=== PATIENT | female | born 1950 | race Caucasian/White ===

== ENCOUNTER 2018-07-01 15:23 | Outpatient (CLI) | payer MEDICARE | END 2018-07-01 15:24 | disposition home or self-care (01) | LOC: BICMAMMO 15:23 | PROVIDERS: ATTEND Family Medicine | DX: Z12.31 Encounter for screening mammogram for malignant neoplasm of breast (principal); R92.1 Mammographic calcification found on diagnostic imaging of breast | CPT/HCPCS: 77063; 77067 ==

== ENCOUNTER 2019-08-31 09:02 | Outpatient (CLI) | payer MEDICARE ==
--- NOTE | 2019-08-31 10:21 | MRI ---
MRI LOWER EXTREMITY JOINT LEFT WITHOUT CONTRAST: History: M23.92 derangement of left knee. Comparison: None. Findings: Medial meniscus: Maceration of the medial meniscus with circumferential tear, loss of volume, and gut ter extrusion. Lateral meniscus: Small radial oblique tear anterior horn body junction involving the free edge and i ntermediate zone lateral meniscus. Abnormal linear signal in the vertical orientation posterior horn lateral meniscus extending to the root attachment although does appear chronic. High-grade intraligamentous degeneration anterior cruciate ligament. Posterior cruciate ligament is i ntact. The MCL and LCL are intact. Extensor mechanism: Quadriceps tendon, patella, and patellar tendon are intact. Cartilage: Patellofemoral compartment: A few full-thickness chondral fissures of the trochlear groove with centr al osteophyte formation. There is also multifocal high-grade chondral loss of the medial and lateral patellar facets as well as subcortical reactive marrow changes. Medial compartment: Cartilage denuding on the medial weightbearing surface medial femoral condyle and medial tibial plateau with early subcortical reactive marrow changes, articular surface flattening, and osteophyte formation. Lateral compartment: Background 25-30% chondral fraying and volume loss with multifocal 50-65% chondr al fissures. Along the medial weightbearing surface there is more higher grade 75% chondral fraying. Bones: Tricompartmental osteophytes. The lateral femoral condylar osteophyte formation at the interco ndylar notch does impinge upon the anterior cruciate ligament. No acute fracture. Moderate degenerative disease of the proximal tibiofibular joint. Soft tissues: Small popliteal bursa effusion containing debris. Small joint effusion. Low-grade synov itis. Muscles: The muscle signal and bulk is normal. Impression: 1. Medial meniscal maceration with loss of volume, gutter extrusion, and loss of hoop stress. Subsequ ent multifocal grade IV chondromalacia. 2. Low-grade radial tear anterior horn and body junction lateral meniscus involving the free edge and intermediate zone. 3. Chronic appearing vertical longitudinal tear posterior horn lateral meniscus extending to the root attachment involving the red zone. 4. A few focal areas of grade IV chondromalacia of the patellofemoral compartment. 5. Grade III chondromalacia lateral compartment. 6. Lateral femoral condylar osteophyte formation at the intercondylar notch impinges upon the anterio r cruciate ligament which has high-grade intraligamentous degeneration as well as anterior extrusion of a ganglion pseudocyst adjacent to the anterior horn lateral meniscus measuring 13 mm in transverse by 1 cm in AP dimension with a craniocaudal length of 7 mm. Transcribed Date/Time: 08/31/2019 10:46 AM
== END 2019-08-31 09:03 | disposition home or self-care (01) ==
LOC: BICMRI 09:02
PROVIDERS: ATTEND Family Medicine
DX: M23.92 Unspecified internal derangement of left knee (principal); S83.282A Other tear of lateral meniscus, current injury, left knee, initial encounter; M22.42 Chondromalacia patellae, left knee; M25.762 Osteophyte, left knee

== ENCOUNTER 2020-05-30 15:14 | Outpatient (CLI) | payer MEDICARE ==
--- NOTE | 2020-05-30 16:42 | MMO ---
Bilateral MAMMO Bilat Screen [facility]. CLINICAL HISTORY: Patient is 69 years old and is seen for screening. The patient has no family history of breast cancer. The patient has no personal history of cancer. VIEWS: The views performed were: left mediolateral oblique and right craniocaudal. FILMS COMPARED: C/W: 07/01/18, 01/10/16 This study has been interpreted with the assistance of computer-aided detection. MAMMOGRAM FINDINGS: There are scattered fibroglandular densities. Benign calcifications are noted bilaterally. There are no suspicious masses, suspicious calcifications, or new areas of architectural distortion. IMPRESSION: THERE IS NO MAMMOGRAPHIC EVIDENCE OF MALIGNANCY. A ROUTINE FOLLOW-UP MAMMOGRAM IN 1 YEAR IS RECOMMENDED. THE RESULTS OF THIS EXAM WERE SENT TO THE PATIENT. ACR BI-RADS Category 2 - Benign finding MAMMOGRAPHY NOTE: 1. A negative mammogram report should not delay a biopsy if a dominant of clinically suspicious mass is present. 2. Approximately 10% to 15% of breast cancers are not detected by mammography. 3. Adenosis and dense breasts may obscure an underlying neoplasm. Reported by: BELA SMITH MD Electonically Signed: [id number]
== END 2020-05-30 15:15 | disposition home or self-care (01) ==
LOC: BICMAMMO 15:14
PROVIDERS: ATTEND Family Medicine
DX: Z12.31 Encounter for screening mammogram for malignant neoplasm of breast (principal)
CPT/HCPCS: 77063; 77067

== ENCOUNTER 2021-06-12 13:15 | Outpatient (CLI) | payer MEDICARE | END 2021-06-12 13:16 | disposition home or self-care (01) | LOC: BICMAMMO 13:15 | PROVIDERS: ATTEND Family Medicine | DX: Z12.31 Encounter for screening mammogram for malignant neoplasm of breast (principal); Z98.82 Breast implant status | CPT/HCPCS: 77063; 77067 ==

== ENCOUNTER 2022-07-13 08:12 | Outpatient (CLI) | payer MEDICARE | END 2022-07-13 08:13 | disposition home or self-care (01) | LOC: BICMAMMO 08:12 | PROVIDERS: ATTEND Family Medicine | DX: N63.10 Unspecified lump in the right breast, unspecified quadrant (principal) | CPT/HCPCS: 76642; 77066; G0279 ==

== ENCOUNTER 2022-10-05 10:32 | Outpatient (CLI) | payer MEDICARE | END 2022-10-05 10:33 | disposition home or self-care (01) | LOC: BICRAD 10:32 | PROVIDERS: ATTEND Family Medicine | DX: M47.27 Other spondylosis with radiculopathy, lumbosacral region (principal) | CPT/HCPCS: 72120 ==

== ENCOUNTER 2025-05-10 13:10 | Outpatient (CLI) | payer MEDICARE | END 2025-05-10 13:11 | disposition home or self-care (01) | LOC: SCSBT 13:10 | PROVIDERS: ATTEND Family Medicine | DX: N95.8 Other specified menopausal and perimenopausal disorders (principal); M85.851 Other specified disorders of bone density and structure, right thigh; M85.852 Other specified disorders of bone density and structure, left thigh | CPT/HCPCS: 77080 ==